=== PATIENT | female | born 1990 | race African-American/Black ===

== ENCOUNTER 2024-03-15 02:19 | Emergency (ER) | payer OTHER ==
[~2024-03-15] VITALS: Ht 166.4 cm; Wt 59.0 kg
[2024-03-15 02:22] VITALS: O2SAT 100
[2024-03-15 03:43] LABS: BASOPHILS % 0.5 % (0.0-2.0); EOSINOPHILS % 0.1 % (0.0-5.0); HEMATOCRIT. 42.4 % (36.0-48.0); HEMOGLOBIN. 14.6 g/dL (12.0-16.0); LYMPHOCYTES % 6.2 % (20.0-50.0); MEAN CORPUSCULAR HEMOGLOBIN 32.8 pg (28.0-32.0); MEAN CORPUSCULAR HGB CONC 34.4 g/dL (31.0-37.0); MEAN CORPUSCULAR VOLUME 95.4 fL (81.0-99.0); MONOCYTES % 4.9 % (2.0-8.0); NEUTROPHILS % 88.3 % (40.0-76.0); PLATELET 202 x1000/uL (130-400); RED BLOOD CELL COUNT 4.45 mill/uL (4.2-5.4); RED CELL DISTRIBUTION WIDTH 12.6 % (11.6-14.6); WHITE BLOOD COUNT 8.2 x1000/uL (4.5-11.0)
[2024-03-15 03:53] LABS: DIFFERENTIAL COMMENT 1
[2024-03-15 03:59] LABS: HCG SCREEN NEGATIVE
[2024-03-15 04:00] LABS: ALANINE AMINOTRANSFERASE 10 IU/L (10-49); ASPARTATE AMINOTRANSFERASE 17 IU/L (<34); BILIRUBIN DIRECT 0.5 mg/dL (<=3.0); BILIRUBIN TOTAL 1.8 mg/dL (0.1-1.0); PROTEIN TOTAL 8.9 g/dL (6.0-8.3)
[2024-03-15] MEDS: MORPHINE SULFATE 4 MG/ML INJ (FOR IV/IM USE) IV STA (04:15)
[2024-03-15] MEDS: ONDANSETRON HCL 4MG/2ML INJ IV STA (04:16)
[2024-03-15] MEDS: SODIUM CHLORIDE 0.9% 1,000 ML IV ONE (04:16)
[2024-03-15 04:34] LABS: CHLORIDE 103 mEq/L (98-107); POTASSIUM 3.6 mEq/L (3.5-5.1); SODIUM 137 mEq/L (136-145)
[2024-03-15 04:35] LABS: CALCIUM 10.4 mg/dL (8.7-10.4); CARBON DIOXIDE 24 mEq/L (21-32)
[2024-03-15 04:40] LABS: CREATININE 0.9 mg/dL (0.6-1.0); GLUCOSE 126 mg/dL (70-105); UREA NITROGEN BLOOD 10 mg/dL (9-23)
[2024-03-15] MEDS: IOHEXOL-300 100 ML BOTTLE ONE (05:39)
[2024-03-15 08:26] LABS: CLARITY URINE CLEAR (CLEAR); COLOR URINE YELLOW (YELLOW); GLUCOSE URINE NEGATIVE (NEGATIVE); KETONES URINE 2+ (NEGATIVE); LEUKOCYTE ESTERASE URINE NEGATIVE (NEGATIVE); NITRITE URINE NEGATIVE (NEGATIVE); OCCULT BLOOD URINE NEGATIVE (NEGATIVE); PROTEIN URINE NEGATIVE (NEGATIVE); SPECIFIC GRAVITY URINE 1.056 (1.005-1.030)
[2024-03-15 09:12] VITALS: BP 118/75; PULSE 90; RESP 17; TEMP 98.4
== END 2024-03-15 09:41 | disposition home or self-care (01) ==
LOC: ER 02:19
DX: R10.32 Left lower quadrant pain (principal)
CPT/HCPCS: 99285; 74177; 96374; 96361; 76830; 76856; 96375; 80076; 80048; 81003; 81025; 84703; 83690; 85025; 36415; Q9967; J2405; J2270; J7030